=== PATIENT | male | born 1990 | race African-American/Black ===

== ENCOUNTER 2023-04-01 20:49 | Emergency (ER) | payer MEDICAID, OTHER ==
[~2023-04-01] VITALS: Ht 188 cm; Wt 102.0 kg
[2023-04-01 21:12] VITALS: O2SAT 98
[2023-04-02] MEDS ORDERED: KETOROLAC 60MG/2ML VIAL IM STA (00:44)
[2023-04-02] MEDS ORDERED: HYDROCODONE/ACETAMINOPHEN 5/325MG TABLET PO STA (00:44)
[2023-04-02 02:06] VITALS: BP 147/91
[2023-04-02] MEDS ORDERED: IBUP-2029 PO (02:49)
[2023-04-02 02:59] VITALS: PULSE 88; RESP 16; TEMP 98
== END 2023-04-02 03:00 | disposition home or self-care (01) ==
LOC: ER 20:49
DX: S49.91XA Unspecified injury of right shoulder and upper arm, initial encounter (principal); M25.511 Pain in right shoulder; W18.39XA Other fall on same level, initial encounter; Y93.89 Activity, other specified; Y92.89 Other specified places as the place of occurrence of the external cause; Y99.8 Other external cause status
CPT/HCPCS: 73030; 29105; 99285; 96372; J1885; Z7610